=== PATIENT | male | born 1950 ===

== ENCOUNTER 2018-12-25 10:30 | Inpatient (IN) | payer BC, MEDICARE ==
[2018-12-25] MEDS ORDERED: Sodium Chloride 0.9% 1,000 ML IV STA (11:38)
[2018-12-25 12:22] LABS: BASO % 0.2 % (0.0-2.0); EOS % 0.1 % (0.0-4.0); HEMOGLOBIN 13.7 g/dL (12.0-18.0); LYMPH # 0.7 K/uL (1.0-4.3); LYMPH % 6.3 % (20.0-40.0); MEAN CELL VOLUME 88.5 fl (80.0-94.0); MEAN CORPUSCULAR HEMOGLOBIN 30.1 pg (27.0-31.0); MEAN PLATELET VOLUME 8.2 fl (7.2-11.7); MONO # 0.8 K/uL (0.0-0.8); MONO % 7.2 % (0.0-10.0); NEUT # 9.9 K/uL (1.8-7.0); NEUT % 86.2 % (50.0-75.0); NRBC % 0.3 % (0.0-0.0); PLATELET COUNT 231 K/uL (130-400); RBC 4.55 Mil/uL (4.40-5.90); RED CELL DISTRIBUTION WIDTH 12.7 % (11.5-14.5); WHITE BLOOD COUNT 11.5 K/uL (4.8-10.8)
[2018-12-25 12:29] LABS: ALB/GLOB RATIO 1.3 (1.0-2.1); ALBUMIN 4.1 g/dL (3.5-5.0); ALT/SGPT 45 U/L (21-72); AST/SGOT 34 U/L (17-59); BLOOD UREA NITROGEN 20 mg/dl (9-20); CALCIUM 9.2 mg/dL (8.4-10.2); GFR NON-AFRICAN AMERICAN > 60
[2018-12-25 13:20] LABS: EOSINOPHIL 1 % (0-7); LYMPHOCYTE 5 % (20-50); MONOCYTE 5 % (0-10); NEUTROPHIL 89 % (42-75); PLATELET ESTIMATE NORMAL (NORMAL); TOTAL CELLS COUNTED 100
[2018-12-25 13:21] LABS: ANISOCYTOSIS SLIGHT; LARGE PLATELETS PRESENT; OVALOCYTES SLIGHT
--- NOTE | 2018-12-25 13:48 | ED PDOC ---
HPI: General Adult Time Seen by Provider: 12/25/18 10:59 Chief Complaint (Nursing): GI Problem Chief Complaint (Provider): Blood in rectum, buttock pain History Per: Patient History/Exam Limitations: no limitations Onset/Duration Of Symptoms: Days Current Symptoms Are (Timing): Still Present Additional Complaint(s): 68yo male, otherwise well, comes to ER reporting fever x 3 days and blood in his stool since yesterday. Patient reports a Tmax of 101 at home with associated chills. He also reports noticing a small bump on his left buttock which has now increased in size. He also reports some right upper abdominal pain 3 days ago, which has largely resolved. Otherwise, no history of hemorrhoids, and he denies any pain with making a bowel movement. He offers no additional complaints. PMD: Dr. Petersen Past Medical History Reviewed: Historical Data, Nursing Documentation, Vital Signs Vital Signs: Last Vital Signs Temp 97.9 F 12/25/18 10:57 Pulse 98 H 12/25/18 10:57 Resp 18 12/25/18 10:57 BP 148/90 12/25/18 10:57 Pulse Ox 98 12/25/18 10:57 - Medical History PMH: Kidney Stones - Surgical History Surgical History: No Surg Hx - Family History Family History: States: No Known Family Hx - Social History Current smoker - smoking cessation education provided: No Alcohol: None Drugs: Denies - Home Medications Home Medications: Ambulatory Orders Medication Instructions Recorded No Known Home Med 12/25/18 - Allergies Allergies/Adverse Reactions: Allergies Allergy/AdvReac Type Severity Reaction Status Date / Time No Known Allergies Allergy Verified 12/25/18 10:57 Review of Systems ROS Statement: Except As Marked, All Systems Reviewed And Found Negative Constitutional: Positive for: Fever, Chills Gastrointestinal: Positive for: Hematochezia. Negative for: Rectal Pain Skin: Positive for: Other (bump on left buttock, increasing in size) Physical Exam - Reviewed Nursing Documentation Reviewed: Yes Vital Signs Reviewed: Yes - Physical Exam Appears: Positive for: Non-toxic, No Acute Distress Head Exam: Positive for: ATRAUMATIC, NORMAL INSPECTION, NORMOCEPHALIC Skin: Positive for: Normal Color Eye Exam: Positive for: Normal appearance Neck: Positive for: Supple Cardiovascular/Chest: Positive for: Regular Rate, Rhythm. Negative for: Tachycardia Respiratory: Positive for: Normal Breath Sounds. Negative for: Respiratory Distress Gastrointestinal/Abdominal: Positive for: Soft. Negative for: Tenderness, Guarding, Rebound Rectal: Positive for: Other ((+) visible bright blood around rectum. (+) indurated abscess on gluteal cleft, approximately 5cm x 3cm. mild erythema. no fluctance or drainage.). Negative for: Hemorrhoids, Mass Extremity: Positive for: Normal ROM Neurological/Psych: Positive for: Awake, Alert, Normal Tone - Laboratory Results Result Diagrams: 12/26/18 09:30 12/25/18 11:38 Lab Results: Total Bilirubin 0.8 mg/dl (0.2-1.3) 12/25/18 11:38 AST 34 U/L (17-59) 12/25/18 11:38 ALT 45 U/L (21-72) 12/25/18 11:38 Alkaline Phosphatase 87 U/L (38-126) 12/25/18 11:38 Total Protein 7.4 G/DL (6.3-8.2) 12/25/18 11:38 Albumin 4.1 g/dL (3.5-5.0) 12/25/18 11:38 Globulin 3.2 gm/dL (2.2-3.9) 12/25/18 11:38 Albumin/Globulin Ratio 1.3 (1.0-2.1) 12/25/18 11:38 - ECG O2 Sat by Pulse Oximetry: 98 (RA) Pulse Ox Interpretation: Normal Medical Decision Making Medical Decision Making: Workup for abscess, new rectal bleed Plan: -- CT Abdomen/Pelvis -- IV Toradol -- Labs -- Urinalysis -- IV Fluids 1530 CT shows gluteal abscess with tracking to the rectum but no fluid collection for drainage. Pt started on IV antibiotics and cultures sent. Consult placed with surgery and spoke with surgery resident. 16:40 Pt seen and evaluated by surgery who agrees with IV antibiotics and warm compress with admission. Pain controlled and patient is stable. PT and his daughter are in agreement with the plan. Scribe Attestation: Documented by Cynthia Cordon acting as a scribe for Karen Tran MD. Provider Attestation: All medical record entries made by the Scribe were at my direction and personally dictated by me. I have reviewed the chart and agree that the record accurately reflects my personal performance of the history, physical exam, medical decision making, and the department course for this patient. I have also personally directed, reviewed, and agree with the discharge instructions and disposition. Disposition - Clinical Impression Clinical Impression: Cellulitis - Disposition Disposition Time: 16:40 Condition: STABLE
[2018-12-25] MEDS ORDERED: Iohexol 300 100 ML IJ ONE (14:12)
[2018-12-25] MEDS ORDERED: Sodium Chloride 0.9% 50 ML IV ONE (14:12)
--- NOTE | 2018-12-25 14:49 | CT ---
Date of service: 12/25/2018 PROCEDURE: CT Abdomen and Pelvis with contrast HISTORY: blood in stool and abscess to left buttock COMPARISON: None. TECHNIQUE: Following the intravenous administration of iodinated contrast material, a CT examination of the abdomen and pelvis was performed from the domes of the diaphragms to the symphysis pubis with reformatted datasets provided in axial, sagittal and coronal planes. Oral contrast was not administered as per referring physician request. Contrast dose: Omnipaque 300, 95 cc Radiation dose: Total exam DLP = 546.46 mGy-cm. This CT exam was performed using one or more of the following dose reduction techniques: Automated exposure control, adjustment of the mA and/or kV according to patient size, and/or use of iterative reconstruction technique. FINDINGS: LOWER THORAX: Small hiatal hernia is appreciated collapsed. Further, trace linear atelectasis is seen at the bilateral lung bases with fibrosis not favored. LIVER: Diffusely diminished attenuation throughout the liver indicates hepatic steatosis. Liver is also borderline enlarged. No mass or intrahepatic biliary dilatation is isolated. GALLBLADDER AND BILE DUCTS: Gallbladder is distended but otherwise appears unremarkable no radiodense choledocholithiasis. PANCREAS: Unremarkable. No gross lesion or ductal dilatation. SPLEEN: Unremarkable. ADRENALS: Unremarkable. No mass. KIDNEYS AND URETERS: Loss at the posterior margins of the mid and lower pole left kidney may indicate prior cortical infarct. No acute renal findings bilaterally. No radiodense urolithiasis or solid parenchymal mass bilaterally. VASCULATURE: Unremarkable. No aortic aneurysm. No aortic atherosclerotic calcification or mural plaque present. BOWEL: Evaluation of the gastrointestinal tract is limited due to the lack of oral contrast administration. A moderate amount retained material is identified distending the ascending through transverse colon with scattered infrequent colonic diverticular appreciated without definite diverticulitis pattern. The sigmoid colon is completely collapsed well as the rectum and evaluation of the wall is quite limited. No local pericolic reactive change or fluid collection. Segmental colitis difficult to exclude nevertheless. At the medial left buttocks abutting the medial gluteal fold is in area of mild but heterogeneous enhancement or reaction measuring 1.8 x 4.3 x 4.6 cm (transverse by anteroposterior by superoinferior dimensions) representing at least phlegmon with potential abscess here. This reactive area encroaches if not partially involves the left side of the anal space. There is no drainable fluid collection appreciable at this time. Reactive changes extending posteriorly and medial relative to the medial gluteal fold is significantly greater in overall volume when compared to this focal area of increased density within subcutaneous fat. APPENDIX: Normal appendix. PERITONEUM: Unremarkable. No free fluid. No free air. LYMPH NODES: Unremarkable. No enlarged lymph nodes. BLADDER: Unremarkable. REPRODUCTIVE: Moderate prostate gland enlargement. BONES: Marked degenerative disease L5-S1 including a possible partially calcified disc bulge or disc herniation within the anterior epidural space at L5-S1 likely stenosing the central canal. OTHER FINDINGS: None. IMPRESSION: 1. 4.6 cm area of phlegmon or potential abscess without drainable fluid collection approaching the perianal space in the medial left buttocks as discussed above. No emphysematous changes. 2. Hepatic steatosis. 3. Chronic infarct left kidney.
[2018-12-25 17:06] LABS: ERYTHROCYTE SEDIMENTATION RATE 65 mm/hr (0-20)
--- NOTE | 2018-12-25 17:06 | CP.PCM.CON ---
History of Present Illness - History of Present Illness History of Present Illness: General Surgery Consult: Dr. Lamas Patient is a 68 M with PMH hemorrhoids who presents with left gluteal pain x 3 days and now blood from area since this am. patient endorses fevers but no n/v or chills. patient indicates that pain is not increased with BM. He denies having any issues like this previously. He otherwise denies GRAHAM, SOB, chest pain, abdominal pain, scrotal or penile pain, difficulty urinating. PMH: hemorrhoids PSH: kidney stone removal, last colonoscopy 2011 (hemorrhoids only) All: NKDA Social: denies ETOH, smoking and drug use Review of Systems - Review of Systems All systems: reviewed and no additional remarkable complaints except (as Per HPI) Past Patient History - Past Social History Alcohol: None Drugs: Denies - RENAL Hx Kidney Stones: Yes - PSYCHIATRIC Hx Substance Use: No - SURGICAL HISTORY Hx Surgeries: No Other/Comment: Lithotripsy - ANESTHESIA Hx Anesthesia: Yes Hx Anesthesia Reactions: No Meds Allergies/Adverse Reactions: Allergies Allergy/AdvReac Type Severity Reaction Status Date / Time No Known Allergies Allergy Verified 12/25/18 10:57 - Medications Medications: Current Medications Ampicillin Sodium/Sulbactam (Sodium 3 gm/ Sodium Chloride) 100 mls @ 100 mls/hr IVPB STAT STA; Protocol Stop: 12/25/18 17:15 Last Admin: 12/25/18 16:48 Dose: 100 mls/hr Physical Exam - Constitutional Appears: Well, Non-toxic, No Acute Distress - Head Exam Head Exam: ATRAUMATIC, NORMOCEPHALIC - ENT Exam ENT Exam: Mucous Membranes Moist - Respiratory Exam Respiratory Exam: NORMAL BREATHING PATTERN - Cardiovascular Exam Cardiovascular Exam: REGULAR RHYTHM - GI/Abdominal Exam GI & Abdominal Exam: Soft. absent: Guarding, Tenderness - Rectal Exam Rectal Exam: Hemorrhoids (small internal). absent: Black Stool, Bloody Stool, Fecal Impaction Additional comments: skin tag left inferior gluteal area, area of induration and tenderness on the interior left gluteal area, no area of discrete fluctuance, no tenderness on rectal exam, no masses, no rectal fluctuance - Extremities Exam Extremities exam: Negative for: calf tenderness, pedal edema - Neurological Exam Neurological exam: Alert, Oriented x3 - Psychiatric Exam Psychiatric exam: Normal Affect, Normal Mood - Skin Skin Exam: Dry, Erythema (erythema and induration of area at the left gluteal cl eft), Intact, Warm Results - Vital Signs Recent Vital Signs: Last Vital Signs Temp 97.9 F 12/25/18 10:57 Pulse 98 H 12/25/18 10:57 Resp 18 12/25/18 10:57 BP 148/90 12/25/18 10:57 Pulse Ox 98 12/25/18 16:57 - Labs Result Diagrams: 12/25/18 11:40 12/25/18 11:38 Labs: Laboratory Results - last 24 hr 12/25/18 12/25/18 11:38 11:40 WBC 11.5 H RBC 4.55 Hgb 13.7 Hct 40.3 MCV 88.5 MCH 30.1 MCHC 34.0 RDW 12.7 Plt Count 231 MPV 8.2 Neut % (Auto) 86.2 H Lymph % (Auto) 6.3 L Marin % (Auto) 7.2 Eos % (Auto) 0.1 Baso % (Auto) 0.2 Neut # (Auto) 9.9 H Lymph # (Auto) 0.7 L [place] # (Auto) 0.8 Eos # (Auto) 0.0 Baso # (Auto) 0.0 Neutrophils % (Manual) 89 H Lymphocytes % (Manual) 5 L Monocytes % (Manual) 5 Eosinophils % (Manual) 1 Platelet Estimate Normal Large Platelets Present Anisocytosis (manual) Slight Macrocytosis (manual) Slight Ovalocytes Slight Sodium 137 Potassium 4.1 Chloride 100 Carbon Dioxide 30 Anion Gap 11 BUN 20 Creatinine 1.0 Est GFR ( Amer) > 60 Est GFR (Non-Af Amer) > 60 Random Glucose 183 H Calcium 9.2 Total Bilirubin 0.8 AST 34 ALT 45 Alkaline Phosphatase 87 Total Protein 7.4 Albumin 4.1 Globulin 3.2 Albumin/Globulin Ratio 1.3 Assessment & Plan - Assessment and Plan (Free Text) Assessment: 68 M no PMH presenting with left gluteal cellulitis, no drainable fluid collection at this time Plan: - continue IV ABX - no surgical intervention at this time - warm compresses - will continue to follow for possible future drainage - discussed with Dr. Lamas, further recs per him Ammy Ruiz, PGY 1 - Date & Time Date: 12/25/18 Time: 17:06
--- NOTE | 2018-12-26 09:28 | CP.PCM.PN ---
<Ross Connolly - Last Filed: 12/26/18 09:26> Subjective - Date & Time of Evaluation Date of Evaluation: 12/26/18 Time of Evaluation: 09:26 - Subjective Subjective: Surgery Progress note Patient feels better. Upon examination Left inferior glute w/ purulent drainage and induration. Culture taken. Lightly packed w/ 1/4" packing to allow for further drainage. Denies fevers, chills, chest pain, shortness of breath. Objective - Vital Signs/Intake and Output Vital Signs (last 24 hours): Temp Pulse Resp BP Pulse Ox 98.4 F 86 20 108/64 96 12/26/18 08:09 12/26/18 08:09 12/26/18 08:09 12/26/18 08:09 12/26/18 08:09 - Medications Medications: Current Medications Ampicillin Sodium/Sulbactam (Sodium 3 gm/ Sodium Chloride) 100 mls @ 100 mls/hr IVPB Q6 RANDELL; Protocol Last Admin: 12/26/18 09:03 Dose: 100 mls/hr Ketorolac Tromethamine (Toradol) 30 mg IVP Q6 PRN PRN Reason: Pain, moderate (4-7) Last Admin: 12/26/18 06:51 Dose: 30 mg - Labs Labs: 12/25/18 11:40 12/25/18 11:38 - Constitutional Appears: Non-toxic, No Acute Distress - Head Exam Head Exam: ATRAUMATIC - Eye Exam Eye Exam: EOMI - ENT Exam ENT Exam: Mucous Membranes Moist - Respiratory Exam Respiratory Exam: NORMAL BREATHING PATTERN. absent: Accessory Muscle Use, Chest Wall Tenderness - Cardiovascular Exam Cardiovascular Exam: REGULAR RHYTHM. absent: Bradycardia, Tachycardia - GI/Abdominal Exam GI & Abdominal Exam: Soft. absent: Distended, Firm, Guarding, Rigid, Tenderness - Rectal Exam Additional comments: Left gluteal drainage. Open, wound explored and lightly packed - Neurological Exam Neurological Exam: Alert, Awake, Oriented x3 - Psychiatric Exam Psychiatric exam: Normal Affect - Skin Skin Exam: Dry, Warm Assessment and Plan - Assessment and Plan (Free Text) Assessment: 68M w/ Left gluteal abscess Plan: - now open and draining - lightly packed - abx - pain control PRN - Sitz bath and Warm compresses - further recs per Surgical attending PGY2 <Huy Lamas - Last Filed: 12/26/18 14:24> Objective - Vital Signs/Intake and Output Vital Signs (last 24 hours): Temp Pulse Resp BP Pulse Ox 98.4 F 86 20 108/64 96 12/26/18 08:09 12/26/18 08:09 12/26/18 08:09 12/26/18 08:09 12/26/18 08:09 - Medications Medications: Current Medications Acetaminophen (Tylenol 325mg Tab) 650 mg PO Q4 PRN PRN Reason: Fever >100.4 F Ampicillin Sodium/Sulbactam (Sodium 3 gm/ Sodium Chloride) 100 mls @ 100 mls/hr IVPB Q6 RANDELL; Protocol Last Admin: 12/26/18 09:03 Dose: 100 mls/hr Ketorolac Tromethamine (Toradol) 30 mg IVP Q6 PRN PRN Reason: Pain, moderate (4-7) Last Admin: 12/26/18 06:51 Dose: 30 mg - Labs Labs: 12/26/18 09:30 12/25/18 11:38 Assessment and Plan - Assessment and Plan (Free Text) Plan: cont abx, local wound care
[2018-12-26 09:52] LABS: BASO % 0.1 % (0.0-2.0); EOS % 0.4 % (0.0-4.0); HEMOGLOBIN 12.7 g/dL (12.0-18.0); LYMPH # 0.6 K/uL (1.0-4.3); LYMPH % 5.5 % (20.0-40.0); MEAN CELL VOLUME 87.7 fl (80.0-94.0); MEAN CORPUSCULAR HEMOGLOBIN 29.9 pg (27.0-31.0); MEAN CORPUSCULAR HGB CONC 34.1 g/dL (33.0-37.0); MEAN PLATELET VOLUME 7.9 fl (7.2-11.7); MONO # 0.9 K/uL (0.0-0.8); MONO % 7.9 % (0.0-10.0); NEUT # 10.1 K/uL (1.8-7.0); NEUT % 86.1 % (50.0-75.0); RBC 4.25 Mil/uL (4.40-5.90); RED CELL DISTRIBUTION WIDTH 12.5 % (11.5-14.5); WHITE BLOOD COUNT 11.8 K/uL (4.8-10.8)
--- NOTE | 2018-12-26 10:15 | CP.PCM.HP ---
<ChristiansenDmitriy - Last Filed: 12/26/18 10:15> History of Present Illness - History of Present Illness History of Present Illness: 68 y/o M with a PMHx of rectal hemorrhoids presented to ED with 3 days Hx of fever, left gluetal pain and scant blood in stools and toilet paper. CT shows left gluteal abscess with tracking to the rectum but no fluid collection for drainage. --Today, pt was seen and examined by bedside with Dr Nicole. Pt reports pain is better. Surgery team by bedside also, were able to obtain some draining sample for culture. Pt afebrile, tolerating PO with no acute events overnight. PMD: Dr. Petersen All: NKDA PMHx: hemorrhoids PSHx: kidney stone removal, last colonoscopy 2011 (hemorrhoids only) SHx: denies ETOH, smoking and drug use Present on Admission - Present on Admission Any Indicators Present on Admission: No Review of Systems - Constitutional Constitutional: Fever. absent: Chills - EENT Nose/Mouth/Throat: absent: Nasal Congestion, Sore Throat, Neck Pain, Neck Mass - Cardiovascular Cardiovascular: absent: Chest Pain, Dyspnea, Dyspnea on Exertion, Edema - Respiratory Respiratory: absent: Cough, Dyspnea, Hemoptysis, Wheezing, Snoring - Gastrointestinal Gastrointestinal: absent: Abdominal Pain, Diarrhea, Nausea, Vomiting - Genitourinary Genitourinary: absent: Dysuria, Flank Pain, Hematuria Past Patient History - Past Social History Smoking Status: Former Smoker - CARDIAC Hx Cardiac Disorders: No - PULMONARY Hx Respiratory Disorders: No - NEUROLOGICAL Hx Neurological Disorder: No - HEENT Other/Comment: wears glasses - RENAL Hx Chronic Kidney Disease: Yes Hx Kidney Stones: Yes - ENDOCRINE/METABOLIC Hx Endocrine Disorders: No - HEMATOLOGICAL/ONCOLOGICAL Hx Blood Disorders: No - INTEGUMENTARY Hx Dermatological Problems: No - MUSCULOSKELETAL/RHEUMATOLOGICAL Hx Musculoskeletal Disorders: No Hx Falls: No - GASTROINTESTINAL Hx Gastrointestinal Disorders: No - GENITOURINARY/GYNECOLOGICAL Hx Genitourinary Disorders: No - PSYCHIATRIC Hx Psychophysiologic Disorder: No Hx Substance Use: No - SURGICAL HISTORY Hx Surgeries: No Other/Comment: Lithotripsy - ANESTHESIA Hx Anesthesia: Yes Hx Anesthesia Reactions: No Hx Malignant Hyperthermia: No Meds Allergies/Adverse Reactions: Allergies Allergy/AdvReac Type Severity Reaction Status Date / Time No Known Allergies Allergy Verified 12/25/18 10:57 Physical Exam - Constitutional Appears: No Acute Distress - Head Exam Head Exam: ATRAUMATIC, NORMAL INSPECTION - Eye Exam Eye Exam: EOMI, Normal appearance - ENT Exam ENT Exam: Mucous Membranes Moist - Neck Exam Neck exam: Positive for: Full Rom. Negative for: Lymphadenopathy, Meningismus - Respiratory Exam Respiratory Exam: Clear to Auscultation Bilateral, NORMAL BREATHING PATTERN - Cardiovascular Exam Cardiovascular Exam: +S1, +S2 - GI/Abdominal Exam GI & Abdominal Exam: Soft. absent: Distended, Guarding, Rebound, Rigid, Tenderness - Rectal Exam Additional comments: Left gluteal, medial area: presence of induration, small open wound that is draining and now packed. - Extremities Exam Extremities exam: Positive for: normal inspection. Negative for: calf tenderness, tenderness - Neurological Exam Neurological exam: Alert Results - Vital Signs Recent Vital Signs: Last Vital Signs Temp 98.4 F 12/26/18 08:09 Pulse 86 12/26/18 08:09 Resp 20 12/26/18 08:09 BP 108/64 12/26/18 08:09 Pulse Ox 96 12/26/18 08:09 - Labs Result Diagrams: 12/26/18 09:30 12/25/18 11:38 Labs: Laboratory Results - last 24 hr 12/25/18 12/25/18 12/26/18 11:38 11:40 09:30 WBC 11.5 H 11.8 H RBC 4.55 4.25 L Hgb 13.7 12.7 Hct 40.3 37.3 MCV 88.5 87.7 MCH 30.1 29.9 MCHC 34.0 34.1 RDW 12.7 12.5 Plt Count 231 238 MPV 8.2 7.9 Neut % (Auto) 86.2 H 86.1 H Lymph % (Auto) 6.3 L 5.5 L [place] % (Auto) 7.2 7.9 Eos % (Auto) 0.1 0.4 Baso % (Auto) 0.2 0.1 Neut # (Auto) 9.9 H 10.1 H Lymph # (Auto) 0.7 L 0.6 L [place] # (Auto) 0.8 0.9 H Eos # (Auto) 0.0 0.0 Baso # (Auto) 0.0 0.0 Neutrophils % (Manual) 89 H Lymphocytes % (Manual) 5 L Monocytes % (Manual) 5 Eosinophils % (Manual) 1 Platelet Estimate Normal Large Platelets Present Anisocytosis (manual) Slight Macrocytosis (manual) Slight Ovalocytes Slight ESR 65 H Sodium 137 Potassium 4.1 Chloride 100 Carbon Dioxide 30 Anion Gap 11 BUN 20 Creatinine 1.0 Est GFR ( Amer) > 60 Est GFR (Non-Af Amer) > 60 Random Glucose 183 H Calcium 9.2 Total Bilirubin 0.8 AST 34 ALT 45 Alkaline Phosphatase 87 Total Protein 7.4 Albumin 4.1 Globulin 3.2 Albumin/Globulin Ratio 1.3 Assessment & Plan - Assessment and Plan (Free Text) Assessment: 68 y/o M with a PMHx of rectal hemorrhoids was admitted for evaluation and management of L gluteal abscess. PLAN: >Left gluteus abscess --Afebrile, vitals stable --Mild leukocytosis. --Wound is open and draining. --Sample obtained for culture. --Gen Surgery on board. --Toradol for pain management --IV Unasyn Q6H. --F/U HbA1c, blood cx, urine cx, and wound cx. >DVT Prophylaxis --SCD's --Lovenox 40mg SC daily Case discussed with Dr Bonnie Christiansen PGY-2 - Date & Time Date: 12/26/18 Time: 07:00 <Zak Nicole - Last Filed: 12/28/18 08:44> Results - Vital Signs Recent Vital Signs: Last Vital Signs Temp 97.9 F 12/28/18 07:30 Pulse 68 12/28/18 07:30 Resp 20 12/28/18 07:30 BP 149/83 12/28/18 07:30 Pulse Ox 98 12/28/18 07:30 - Labs Result Diagrams: 12/27/18 06:10 12/27/18 06:10 Assessment & Plan - Assessment and Plan (Free Text) Assessment: Patient was personally seen and examined by me in rounds with residents. Available labs and diagnostic data reviewed. Case, Patient's condition and management plan discussed with residents in rounds. Agree with resident's progress note. Plan: As ordered.
[2018-12-27 06:50] LABS: BASO % 0.2 % (0.0-2.0); EOS # 0.1 K/uL (0.0-0.7); EOS % 1.1 % (0.0-4.0); HEMOGLOBIN 12.6 g/dL (12.0-18.0); LYMPH % 11.4 % (20.0-40.0); MEAN CELL VOLUME 87.9 fl (80.0-94.0); MEAN CORPUSCULAR HEMOGLOBIN 30.3 pg (27.0-31.0); MEAN CORPUSCULAR HGB CONC 34.5 g/dL (33.0-37.0); MEAN PLATELET VOLUME 7.9 fl (7.2-11.7); MONO # 0.8 K/uL (0.0-0.8); MONO % 9.6 % (0.0-10.0); NEUT # 6.5 K/uL (1.8-7.0); NEUT % 77.7 % (50.0-75.0); NRBC % 0.1 % (0.0-0.0); RBC 4.15 Mil/uL (4.40-5.90); RED CELL DISTRIBUTION WIDTH 12.6 % (11.5-14.5); WHITE BLOOD COUNT 8.4 K/uL (4.8-10.8)
[2018-12-27 06:53] LABS: ALB/GLOB RATIO 1.2 (1.0-2.1); ALBUMIN 3.4 g/dL (3.5-5.0); ALT/SGPT 58 U/L (21-72); AST/SGOT 42 U/L (17-59); BLOOD UREA NITROGEN 17 mg/dl (9-20); CALCIUM 8.7 mg/dL (8.4-10.2); GFR NON-AFRICAN AMERICAN > 60
[2018-12-27 08:26] VITALS: RESP 20
--- NOTE | 2018-12-27 09:49 | CP.PCM.PN ---
<SmithRegisantonieta - Last Filed: 12/27/18 10:00> Subjective - Date & Time of Evaluation Date of Evaluation: 12/27/18 Time of Evaluation: 06:30 - Subjective Subjective: Patient seen and examined this morning with Dr. Nicole. Patient with Left inferior gluteal abscess w/ purulent drainage and s/p packing. Denies any pain, tolerating PO, normal BM this morning. Objective - Vital Signs/Intake and Output Vital Signs (last 24 hours): Temp Pulse Resp BP Pulse Ox 98.2 F 69 20 135/75 98 12/27/18 08:26 12/27/18 08:26 12/27/18 08:26 12/27/18 08:26 12/27/18 08:26 - Medications Medications: Current Medications Acetaminophen (Tylenol 325mg Tab) 650 mg PO Q4 PRN PRN Reason: Fever >100.4 F Ampicillin Sodium/Sulbactam (Sodium 3 gm/ Sodium Chloride) 100 mls @ 100 mls/hr IVPB Q6 RANDELL; Protocol Last Admin: 12/27/18 09:00 Dose: 100 mls/hr Ketorolac Tromethamine (Toradol) 30 mg IVP Q6 PRN PRN Reason: Pain, moderate (4-7) Last Admin: 12/26/18 21:11 Dose: 30 mg - Labs Labs: 12/27/18 06:10 12/27/18 06:10 - Constitutional Appears: No Acute Distress - Head Exam Head Exam: NORMAL INSPECTION - Eye Exam Eye Exam: Normal appearance - ENT Exam ENT Exam: Mucous Membranes Moist - Respiratory Exam Respiratory Exam: Clear to Ausculation Bilateral, NORMAL BREATHING PATTERN - Cardiovascular Exam Cardiovascular Exam: REGULAR RHYTHM, +S1, +S2 - GI/Abdominal Exam GI & Abdominal Exam: Soft. absent: Tenderness - Rectal Exam Additional comments: Left medial gluteal abscess, 2cm induration, mild erythema and +tenderness, small opening draining and s/p packing - Extremities Exam Extremities Exam: Normal Inspection - Back Exam Back Exam: NORMAL INSPECTION - Neurological Exam Neurological Exam: Alert, Awake, Oriented x3 - Psychiatric Exam Psychiatric exam: Normal Affect - Skin Skin Exam: Normal Color, Warm Assessment and Plan - Assessment and Plan (Free Text) Assessment: A/P: 68 y/o male with Left inferior gluteal abscess w/ purulent drainage and s/p packing. Left inferior gluteal abscess w/ purulent drainage - Consult surgery, recommendations appreciated - C/w wound care/packing, Sitz bath and Warm compresses - F/u wound culture to set the Abx goal, Outpatient vs inpatient - Bcx: NGPD - C/w Pain management: Toradol - C/w IV Abx: Unasyn Q6H DVT PPX - Lovenox 40mg SC daily Case discussed with Dr. Nicole, Agrees with plan <Zak Nicole - Last Filed: 12/28/18 08:43> Objective - Vital Signs/Intake and Output Vital Signs (last 24 hours): Temp Pulse Resp BP Pulse Ox 97.9 F 68 20 149/83 98 12/28/18 07:30 12/28/18 07:30 12/28/18 07:30 12/28/18 07:30 12/28/18 07:30 - Medications Medications: Current Medications Acetaminophen (Tylenol 325mg Tab) 650 mg PO Q4 PRN PRN Reason: Fever >100.4 F Ampicillin Sodium/Sulbactam (Sodium 3 gm/ Sodium Chloride) 100 mls @ 100 mls/hr IVPB Q6 RANDELL; Protocol Last Admin: 12/28/18 04:38 Dose: 100 mls/hr Ketorolac Tromethamine (Toradol) 30 mg IVP Q6 PRN PRN Reason: Pain, moderate (4-7) Last Admin: 12/27/18 16:37 Dose: 30 mg - Labs Labs: 12/27/18 06:10 12/27/18 06:10 Assessment and Plan - Assessment and Plan (Free Text) Assessment: Patient was personally seen and examined by me in rounds with residents. Available labs and diagnostic data reviewed. Case, Patient's condition and management plan discussed with residents in rounds. Agree with resident's progress note. Plan: As ordered.
--- NOTE | 2018-12-27 11:00 | CP.PCM.PN ---
Subjective - Date & Time of Evaluation Date of Evaluation: 12/27/18 Time of Evaluation: 10:57 - Subjective Subjective: seen at bedside, no overnight events. Pt afebrile, hemodynamically stable. Pt reports improved discomfort to left gluteal area, continues to have drainage. +BM this morning. gen: awake, alert, NAD HEENT: nc/at, eomi, perrla no acute respiratory distress left gluteal area: actively draining <1cm open wound central draining pus, cody rounding induration, minimal tenderness a/p left gluteal abscess -cont local wound care -sitz baths -cont abx -pt surgically stable for dc with abx Objective - Vital Signs/Intake and Output Vital Signs (last 24 hours): Temp Pulse Resp BP Pulse Ox 98.2 F 69 20 135/75 98 12/27/18 08:26 12/27/18 08:26 12/27/18 08:26 12/27/18 08:26 12/27/18 08:26 - Medications Medications: Current Medications Acetaminophen (Tylenol 325mg Tab) 650 mg PO Q4 PRN PRN Reason: Fever >100.4 F Ampicillin Sodium/Sulbactam (Sodium 3 gm/ Sodium Chloride) 100 mls @ 100 mls/hr IVPB Q6 RANDELL; Protocol Last Admin: 12/27/18 09:00 Dose: 100 mls/hr Ketorolac Tromethamine (Toradol) 30 mg IVP Q6 PRN PRN Reason: Pain, moderate (4-7) Last Admin: 12/26/18 21:11 Dose: 30 mg - Labs Labs: 12/27/18 06:10 12/27/18 06:10
[2018-12-28 07:30] VITALS: BP 149/83; PULSE 68; TEMP 97.9; O2SAT 98
--- NOTE | 2018-12-28 08:22 | CP.PCM.DIS ---
Provider - Provider Date of Admission: 12/25/18 16:46 Attending physician: Zak Nicole MD Primary care physician: dr. frye Consults: 12/25/18 17:05 General Surgery Consult Stat Comment: Consulting Provider: Huy Lamas Consulting Physician: Huy Lamas Reason for Consult: abscess Time Spent in preparation of Discharge (in minutes): 40 Diagnosis - Discharge Diagnosis (1) Abscess, gluteal, left Status: Acute Hospital Course - Lab Results Lab Results: Micro Results 12/25/18 11:55 Blood-Venous Blood Culture - Preliminary NO GROWTH AFTER 48 HOURS 12/25/18 11:40 Blood-Venous Blood Culture - Preliminary NO GROWTH AFTER 48 HOURS 12/26/18 10:50 Buttock Gram Stain - Final 12/26/18 10:50 Buttock Wound Culture - Preliminary Gram Positive Cocci Gram Negative Jorge Most Recent Lab Values WBC 8.4 K/uL (4.8-10.8) 12/27/18 06:10 RBC 4.15 Mil/uL (4.40-5.90) L 12/27/18 06:10 Hgb 12.6 g/dL (12.0-18.0) 12/27/18 06:10 Hct 36.4 % (35.0-51.0) 12/27/18 06:10 MCV 87.9 fl (80.0-94.0) 12/27/18 06:10 MCH 30.3 pg (27.0-31.0) 12/27/18 06:10 MCHC 34.5 g/dL (33.0-37.0) 12/27/18 06:10 RDW 12.6 % (11.5-14.5) 12/27/18 06:10 Plt Count 267 K/uL (130-400) 12/27/18 06:10 MPV 7.9 fl (7.2-11.7) 12/27/18 06:10 Neut % (Auto) 77.7 % (50.0-75.0) H 12/27/18 06:10 Lymph % (Auto) 11.4 % (20.0-40.0) L 12/27/18 06:10 [place] % (Auto) 9.6 % (0.0-10.0) 12/27/18 06:10 Eos % (Auto) 1.1 % (0.0-4.0) 12/27/18 06:10 Baso % (Auto) 0.2 % (0.0-2.0) 12/27/18 06:10 Neut # (Auto) 6.5 K/uL (1.8-7.0) 12/27/18 06:10 Lymph # (Auto) 1.0 K/uL (1.0-4.3) 12/27/18 06:10 [place] # (Auto) 0.8 K/uL (0.0-0.8) 12/27/18 06:10 Eos # (Auto) 0.1 K/uL (0.0-0.7) 12/27/18 06:10 Baso # (Auto) 0.0 K/uL (0.0-0.2) 12/27/18 06:10 Neutrophils % (Manual) 89 % (42-75) H 12/25/18 11:40 Lymphocytes % (Manual) 5 % (20-50) L 12/25/18 11:40 Monocytes % (Manual) 5 % (0-10) 12/25/18 11:40 Eosinophils % (Manual) 1 % (0-7) 12/25/18 11:40 Platelet Estimate Normal (NORMAL) 12/25/18 11:40 Large Platelets Present 12/25/18 11:40 Anisocytosis (manual) Slight 12/25/18 11:40 Macrocytosis (manual) Slight 12/25/18 11:40 Ovalocytes Slight 12/25/18 11:40 ESR 65 mm/hr (0-20) H 12/25/18 11:40 Sodium 140 mmol/l (132-148) 12/27/18 06:10 Potassium 3.6 MMOL/L (3.6-5.0) 12/27/18 06:10 Chloride 102 mmol/L (98-107) 12/27/18 06:10 Carbon Dioxide 29 mmol/L (22-30) 12/27/18 06:10 Anion Gap 13 (10-20) 12/27/18 06:10 BUN 17 mg/dl (9-20) 12/27/18 06:10 Creatinine 1.0 mg/dl (0.8-1.5) 12/27/18 06:10 Est GFR ( Amer) > 60 12/27/18 06:10 Est GFR (Non-Af Amer) > 60 12/27/18 06:10 Random Glucose 147 mg/dL (75-110) H 12/27/18 06:10 Hemoglobin A1c 6.1 % (4.2-6.5) 12/26/18 09:30 Calcium 8.7 mg/dL (8.4-10.2) 12/27/18 06:10 Total Bilirubin 0.6 mg/dl (0.2-1.3) 12/27/18 06:10 AST 42 U/L (17-59) 12/27/18 06:10 ALT 58 U/L (21-72) 12/27/18 06:10 Alkaline Phosphatase 85 U/L (38-126) 12/27/18 06:10 Total Protein 6.4 G/DL (6.3-8.2) 12/27/18 06:10 Albumin 3.4 g/dL (3.5-5.0) L 12/27/18 06:10 Globulin 3.0 gm/dL (2.2-3.9) 12/27/18 06:10 Albumin/Globulin Ratio 1.2 (1.0-2.1) 12/27/18 06:10 - Hospital Course Hospital Course: 68 y/o M with a PMHx of rectal hemorrhoids presented to ED with 3 days Hx of intermittent fever, left gluetal pain and scant blood/pus in stools and toilet paper. After admission, patient was found to have Left inferior gluteal abscess w/ purulent drainage. CT shows left gluteal abscess with tracking to the rectum but no fluid collection for drainage. Patient was started on Unasyn, Surgery team was consulted, patient is s/p packing and culture of the abscess. Culture is positive for MRSA and E.coli. Patient was d/c home with Clinda, Keflex, probiotics and Tylenol and instructed to f/u with PMD and surgery in 1 week. Patient understands and agrees with plan. Case discussed with Dr. Nicole, Agrees with plan Discharge Exam - Head Exam Head Exam: NORMAL INSPECTION - Eye Exam Eye Exam: EOMI, Normal appearance, PERRL Pupil Exam: NORMAL ACCOMODATION - ENT Exam ENT Exam: Mucous Membranes Moist - Neck Exam Neck exam: Full Rom - Respiratory Exam Respiratory Exam: Clear to PA & Lateral, NORMAL BREATHING PATTERN, UNREMARKABLE - Cardiovascular Exam Cardiovascular Exam: REGULAR RHYTHM, +S1, +S2 - GI/Abdominal Exam GI & Abdominal Exam: Normal Bowel Sounds, Soft. absent: Rebound, Rigid, Tenderness - Rectal Exam Additional comments: Left medial gluteal abscess, 2cm induration, mild erythema and +tenderness, small opening draining and s/p packing - Extremities Exam Extremities exam: normal inspection - Back Exam Back exam: absent: CVA tenderness (L), CVA tenderness (R) - Neurological Exam Neurological exam: Alert, CN II-XII Intact, Normal Gait, Oriented x3, Reflexes Normal - Psychiatric Exam Psychiatric exam: Normal Affect - Skin Skin Exam: Dry, Normal Color Additional comments: Left inferior gluteal abscess w/ purulent drainage Discharge Plan - Discharge Medications Prescriptions: Acetaminophen [Tylenol] 650 mg PO Q6H PRN #20 capsule PRN Reason: Pain, Moderate (4-7) Cephalexin [cephalexin] 500 mg PO BID 5 Days #10 cap Clindamycin [Cleocin] 300 mg PO Q6H 5 Days #20 cap Lactobacillus Combination No.8 [Adult Probiotic] 1 each PO BID 5 Days #10 capsule NS - Follow Up Plan Condition: STABLE Disposition: HOME/ ROUTINE Instructions: Abscess Drainage, Percutaneous (DC), Abscess (GEN) Additional Instructions: - F/u with PMD in 5-7 days - F/u with Surgery, Dr. Lamas in 1 week - Continue with wound care as discussed per surgery team - Continue with Antibiotics as instructed - Pain management with tylenol as needed - Continue with sits baths and warm compresses Referrals: Jose Petersen [Medical Doctor] - Huy Lamas MD [Staff Provider] -
--- NOTE | 2018-12-28 09:52 | CP.PCM.PN ---
Subjective - Date & Time of Evaluation Date of Evaluation: 12/28/18 Time of Evaluation: 09:50 - Subjective Subjective: seen at bedside, no acute complaints. Pt resting comfort, reports minimal discomfort to left gluteal area. gen: awake, alert, NAD heent: nc/at, eomi no acute respiratory distress left gluteal: <1cm open wound, purulent drainage dreseeing, improving surrounding erythema -cont sits baths -transition to PO abx -stable for dc f/u in office Objective - Vital Signs/Intake and Output Vital Signs (last 24 hours): Temp Pulse Resp BP Pulse Ox 97.9 F 68 20 149/83 98 12/28/18 07:30 12/28/18 07:30 12/28/18 07:30 12/28/18 07:30 12/28/18 07:30 - Medications Medications: Current Medications Acetaminophen (Tylenol 325mg Tab) 650 mg PO Q4 PRN PRN Reason: Fever >100.4 F Ampicillin Sodium/Sulbactam (Sodium 3 gm/ Sodium Chloride) 100 mls @ 100 mls/hr IVPB Q6 RANDELL; Protocol Last Admin: 12/28/18 09:00 Dose: 100 mls/hr Ketorolac Tromethamine (Toradol) 30 mg IVP Q6 PRN PRN Reason: Pain, moderate (4-7) Last Admin: 12/28/18 09:14 Dose: 30 mg - Labs Labs: 12/27/18 06:10 12/27/18 06:10
== END 2018-12-28 12:10 | disposition home or self-care (01) | DRG 603 ==
LOC: H.ER 10:30 → H.ERHOLD 16:46 → H.MEDSURG1 21:45
PROVIDERS: ADMIT Internal Medicine; ATTEND Internal Medicine
DX: L03.317 Cellulitis of buttock (principal); L02.31 Cutaneous abscess of buttock; B95.62 Methicillin resistant Staphylococcus aureus infection as the cause of diseases classified elsewhere; B96.20 Unspecified Escherichia coli [E. coli] as the cause of diseases classified elsewhere; Z87.442 Personal history of urinary calculi; Z87.891 Personal history of nicotine dependence